=== PATIENT | female | born 1950 | race African-American/Black ===

== ENCOUNTER 2023-05-20 11:00 | Emergency (ER) | payer OTHER ==
--- OUTSIDE RECORDS SUMMARY | 2023-05-20 11:02 | XMS REPORT | Continuity of Care Document ---
:1950 Author Organization [facility] t Address [address] [place] [address] [place] [address] Care Team Providers Name Role Phone Liberty Jacinto Attending Clinician Unavailable Miller_S_AH Attending Clinician Unavailable Aishaayo_A_AH Attending Clinician Unavailable Miller_S_AH Admitting Clinician Unavailable Olamide-Mbayo_A_AH Admitting Clinician Unavailable Payers Payer Name Policy Type Policy Number Effective Date Expiration Date S our [facility] [place] - [id number] 2019 [employer] 00:00:00 (MEDICARE REPLACEMENT/ADVANT AGE - HMO) Problems Condition Condition Condition Status Onset Resolution Last Treating Co mments Source Name Details Category Date Date Treatment Clinician Date Senile Senile Problem Active [facility] purpura Purpura - Family 00:00: Practic 00 e Chronic Chronic Problem Active [facility] kidney Kidney 1-12 Family disease Disease 00:00: Practic stage 3 Stage 3 00 e Hyperparat Hyperparat Problem Active [facility] hyroidism hyroidism 12 Fami ly due to Due to 00:00: Practic renal Renal 00 e insufficie Insufficie ncy ncy Type 2 Type 2 Problem Active [facility] diabetes Diabetes 7-07 Family mellitus Mellitus 00:00: Practi c 00 e Body mass Body Mass Problem Active Anjana kerri index Index 3-04 Family 25-29 - 25-29 - 00:00: Practic overweight Overweight 00 e Anemia Anemia Problem Active [facility] 3-04 Family 00:00: Practic 00 e Benign Benign Problem Active [facility] hypertensi Hypertensi 3-04 Fa shabbir ve renal ve Renal 00:00: Practi c disease Disease 00 e Multiple Multiple Problem Active Wolf ge complicati Complicati 3-04 Frankie shea ons due to ons Due to 00:00: Pr actic type 2 Type 2 00 e diabetes Diabetes mellitus Mellitus Allergies, Adverse Reactions, Alerts This patient has no known allergies or adverse reactions. Social History Smoking Status Start Date Stop Date Source Never Smoker [facility] Medications Ordered Filled Start Stop Current Ordering Indication Dosage Frequency Signature Comments Components Source Medication Medication Date Date Medication? Clinician (SIG) Name Name allopurinol allopurinol No allopurino [facility] 100 mg 100 mg l 100 mg Family tablet TAKE tablet TAKE tablet Practic 1 TABLET BY 1 TABLET BY TAKE 1 e MOUTH ONCE MOUTH ONCE TABLET BY DAILY DAILY MOUTH ONCE DAILY amlodipine amlodipine No amlodipine [facility] 10 mg 10 mg 10 mg Family tablet TAKE tablet TAKE tablet Practic 1 TABLET BY 1 TABLET BY TAKE 1 e MOUTH ONCE MOUTH ONCE TABLET BY DAILY DAILY MOUTH ONCE DAILY Aspir-81 1 Aspir-81 1 No Aspir-81 1 [facility] tab daily tab daily tab daily Family Practic e flaxseed flaxseed No flaxseed Anjana kerri oil-omega oil-omega oil-omega Family 3,6,9-fatty 3,6,9-fatty 3,6,9-fatt Practic acids 1,300 acids 1,300 y acids e mg-670 mg-670 1,300 mg-155 mg mg-155 mg mg-670 capsule capsule mg-155 mg Take by Take by capsule oral route. oral route. Take by oral route. iron 1 tab iron 1 tab No iron 1 tab [facility] daily daily daily Family Practic e lisinopril lisinopril No lisinopril [facility] 20 20 20 Family mg-hydrochl mg-hydrochl mg-hydroch Practic orothiazide orothiazide lorothiazi e 25 mg 25 mg de 25 mg tablet TAKE tablet TAKE tablet 1 TABLET BY 1 TABLET BY TAKE 1 MOUTH ONCE MOUTH ONCE TABLET BY DAILY FOR DAILY FOR MOUTH ONCE 90 DAYS 90 DAYS DAILY FOR 90 DAYS metformin metformin No metformin [facility] ER 500 mg ER 500 mg ER 500 mg Family tablet,exte tablet,exte tablet,ext Practic nded nded ended e release 24 release 24 release 24 hr hr hr pioglitazon pioglitazon No pioglitazo [facility] e 15 mg e 15 mg ne 15 mg Famil y tablet Take tablet Take tablet Practic 1 tablet 1 tablet Take 1 e every day every day tablet by oral by oral every day route. route. by oral route. Immunizations Ordered Immunization Filled Immunization Date Status Commen ts Source Name Name influenza, influenza, 2020-07-25 Completed [facility] injectable, injectable, 00:00:00 Practice quadrivalent quadrivalent pneumococcal pneumococcal 2019-07-24 Completed [facility] shabbir polysaccharide PPV23 polysaccharide PPV23 00:00:00 Practice influenza, influenza, 2019-07-24 Completed [facility] injectable, injectable, 00:00:00 Practice quadrivalent quadrivalent Vital Signs Vital Name Observation Time Observation Value Comments Source BP Diastolic 2019-11-23 00:00:00 80 mm[Hg] [facility] Height 2019-11-23 00:00:00 57 [in_i] [facility] BMI (Body Mass 2019-11-23 00:00:00 27.3 kg/m2 [facility]) Practice BP Systolic 2019-11-23 00:00:00 130 mm[Hg] [facility] Body Weight 2019-11-23 00:00:00 126 [lb_av] [facility] Procedures Procedure Date / Time Performed Performing Clinician [facility] e mammogram, screening 2019-11-23 00:00:00 [facility] Hemorrhoidectomy [facility] Plan of Care Planned Activity Planned Date Details Comments Source Instructions [facility] Encounters Start End Encounter Admission Attending Care Care Encounter Source Date/Time Date/Time Type Type Clinicians Facility Department ID 2021-10-18 Outpatient HAIDER Jacinto [facility] [id number] Common 11:28:09 Liberty [id number] [facility] 2022-05-15 2022-05-15 Outpatient Miller_S_AH VFP VFP [id number] [facility] 00:00:00 00:00:00 [id number] Family Practic e 2022-05-15 2022-05-15 Outpatient Miller_S_AH VFP VFP [id number] [facility] 00:00:00 00:00:00 [id number] Family Practic e 2021-03-08 2021-03-08 Outpatient Miller_S_AH VFP VFP [id number] [facility] 11:14:00 11:14:00 [id number] Family Practic e 2021-02-02 2021-02-02 Outpatient Olamide-Mbayo VFP VFP [id number] [facility] 12:21:00 12:21:00 _A_AH [id number] Family Practic e 2020-11-30 2020-11-30 Outpatient Olamide-Mbayo VFP VFP [id number] [facility] 02:07:00 02:07:00 _A_AH [id number] Family Practic e 2020-11-28 2020-11-28 Clau VFP [place] - [id number] [facility] 00:00:00 00:00:00 Olamide-Mbay [facility] Rohan weaver, [employer]: Medical - Practi c [email or web address] [facility], [place] [address], [place] [address] , Ph. 2020-11-08 2020-11-08 Outpatient Olamide-Mbayo VFP VFP [id number] [facility] 03:31:00 03:31:00 _A_AH [id number] Family Practic e 2020-11-08 2020-11-08 Outpatient Olamide-Mbayo VFP VFP [id number] [facility] 03:31:00 03:31:00 _A_AH [id number] Family Practic e 2020-11-08 2020-11-08 Outpatient Olamide-Mbayo VFP VFP [id number] [facility] 03:31:00 03:31:00 _A_AH [id number] Family Practic e 2020-11-04 2020-11-04 Outpatient Olamide-Mbayo VFP VFP [id number] [facility] 05:27:00 05:27:00 _A_AH [id number] Family Practic e 2019-11-24 2019-11-24 Outpatient Olamide-Mbayo VFP VFP [id number] [facility] 02:56:00 02:56:00 _A_AH [id number] Family Practic e 2019-11-23 2019-11-23 Outpatient Olamide-Mbayo VFP VFP [id number] [facility] 03:19:00 03:19:00 _A_AH [id number] Family Practic e 2019-11-23 2019-11-23 Clau VFP [place] - [id number] [facility] 00:00:00 00:00:00 Olamide-Mbay [facility] becki weaver, [employer]: Medical - Practi kamini [email or web address] [facility], [place] [address], [place] [address] , Ph. Results This patient has no known results.
[2023-05-20 13:35] VITALS: TEMP 97.8
[2023-05-20 13:36] VITALS: BP 182/89; O2SAT 99
--- NOTE | 2023-05-21 13:15 | ER ---
Nurse's Notes [facility] Name: Gertrude Jordan Age: 72 yrs Sex: Female : 1950 Arrival Date: 05/20/2023 Time: 11:00 Bed 12 Private MD: Diagnosis: Foreign body in conjunctival sac, right eye;Foreign body in cornea, right eye Presentation: 05/20 11:19 Chief complaint: Patient states: "I woke up this morning and my right eye started mb9 hurting and now its swollen. I can barley keep it open". Coronavirus screen: Vaccine status: Patient reports receiving the 2nd dose of the covid vaccine. Ebola Screen: No symptoms or risks identified at this time. Initial Sepsis Screen: Does the patient meet any 2 criteria? No. Patient's initial sepsis screen is negative. Does the patient have a suspected source of infection? No. Patient's initial sepsis screen is negative. Risk Assessment: Do you want to hurt yourself or someone else? Patient reports no desire to harm self or others. Onset of symptoms was May 20, 2023. 11:19 Method Of Arrival: Ambulatory mb9 11:19 Acuity: LILIA 3 mb9 Triage Assessment: 11:22 General: Appears uncomfortable, Behavior is cooperative. EENT: Sclera/Cornea are mb9 reddened in outer aspect of conjuctiva of right eye and inner aspect of conjuctiva of right eye. Respiratory: Airway is patent Respiratory effort is even, unlabored, Respiratory pattern is regular, symmetrical. Derm: Skin is pink, warm \\T\\ dry. Musculoskeletal: Range of motion: intact in all extremities. Historical: - Allergies: 11:20 No Known Allergies; mb9 - Home Meds: 11:20 amlodipine oral [Active]; Metformin Oral [Active]; mb9 - PMHx: 11:20 Hypertensive disorder; Diabetes mellitus; mb9 - PSHx: 11:20 section; Total abdominal hysterectomy; mb9 - Immunization history:: Adult Immunizations up to date. - Social history:: Smoking status: Patient denies any tobacco usage or history of. Screenin:19 [facility] ED Fall Risk Assessment (Adult) History of falling in the last 3 months, me1 including since admission No falls in past 3 months (0 pts) Confusion or Disorientation No (0 pts) Intoxicated or Sedated No (0 pts) Impaired Gait No (0 pts) Mobility Assist Device Used No (0 pt) Altered Elimination No (0 pt) Score/Fall Risk Level 0 - 2 = Low Risk. Abuse screen: Denies threats or abuse. Nutritional screening: No deficits noted. Tuberculosis screening: No symptoms or risk factors identified. Assessment: 12:19 General: Appears uncomfortable, well groomed, well developed, well nourished, Behavior me1 is calm, cooperative, appropriate for age. Pain: Complains of pain in right eye Pain currently is 5 out of 10 on a pain scale. Quality of pain is described as sharp, Pain began 2 hours ago. Is continuous. Neuro: Level of Consciousness is awake, alert, obeys commands, Oriented to person, place, time, situation, Appropriate for age. Cardiovascular: Capillary refill < 3 seconds Patient's skin is warm and dry. Respiratory: Airway is patent Respiratory effort is even, unlabored, Respiratory pattern is regular, symmetrical. EENT: Sclera/Cornea are reddened in outer aspect of conjuctiva of right eye and inner aspect of conjuctiva of right eye Reports pain in right eye woke up this morning, R eye started hurting and now it is swollen. "I can barely keep it open.". Vital Signs: 11:19 BP 183 / 79; Pulse 62; Resp 16; Temp 97.8; Pulse Ox 100% ; Weight 58.97 kg; Height 4 mb9 ft. 9 in. ; Pain 8/10; 13:08 BP 182 / 89; Pulse 52; Resp 17; Pulse Ox 99% on R/A; me1 11:19 Body Mass Index 28.13 (58.97 kg, 144.78 cm) mb9 11:19 Pain Scale: Adult mb9 ED Course: 11:11 Patient arrived in ED. mg5 11:20 Triage completed. mb9 11:22 Arm band placed on. mb9 11:24 Artemio Alicea MD is Attending Physician. rn 11:41 Sierra Grullon is Attending Physician. ci 12:13 Nai Link, DIPTI is Primary Nurse. me1 12:19 Patient has correct armband on for positive identification. Bed in low position. Call [facility] in reach. Side rails up X 1. Provided Education on: POC. Verbalized understanding. . 12:19 No provider procedures requiring assistance completed. Patient did not have IV access me1 during this emergency room visit. Administered Medications: No medications were administered Medication: 12:19 VIS not applicable for this client. me1 Outcome: 12:48 Discharge ordered by . ci 13:14 Discharged to home with family. me1 13:14 Condition: stable 13:14 Discharge instructions given to patient, family, Instructed on discharge instructions, follow up and referral plans. Demonstrated understanding of instructions, follow-up care. 13:15 Patient left the ED. me1 Signatures: Artemio Alicea MD MD rn Breneman, Jhoana Anthony RN RN mb9 Nai Link RN RN me1 Cecilia Chavez 5 Sierra Grullon Corrections: (The following items were deleted from the chart) 11:22 11:19 BP 122 / 87; Pulse 62bpm; Resp 16bpm; Pulse Ox 100%; Temp 97.8F; 58.97 kg; Height mb9 4 ft. 9 in.; BMI: 28.1; Pain 8/10, Adult; mb9 11:22 11:19 Acuity: LILIA 4 mb9 mb9
--- NOTE | 2023-05-21 13:15 | EDPHYS ---
Physician Documentation [facility] Name: Gertrude Jordan Age: 72 yrs Sex: Female : 1950 Arrival Date: 05/20/2023 Time: 11:00 Bed 12 Private MD: ED Physician Sierra Grullon HPI: 05/20 12:20 This 72 yrs old Black Female presents to ER via Ambulatory with complaints of Eye ci Problem. 12:20 Patient endorses right eye pain, feels like she has an eyelash stuck in her eye. ci Recently got her eyelashes done 2 days ago. Patient looked in the mirror and could not see any foreign bodies, feels like r eye is swollen. No changes in vision, denies headache, trauma to eye. Historical: - Allergies: 11:20 No Known Allergies; mb9 - Home Meds: 11:20 amlodipine oral [Active]; Metformin Oral [Active]; mb9 - PMHx: 11:20 Hypertensive disorder; Diabetes mellitus; mb9 - PSHx: 11:20 section; Total abdominal hysterectomy; mb9 - Immunization history:: Adult Immunizations up to date. - Social history:: Smoking status: Patient denies any tobacco usage or history of. ROS: 12:43 Constitutional: Negative for fever, chills, and weight loss, Eyes: +ve pain, redness, ci and discharge ENT: Negative for injury, pain, and discharge, Neck: Negative for injury, pain, and swelling, Cardiovascular: Negative for chest pain, palpitations, and edema, Respiratory: Negative for shortness of breath, cough, wheezing, and pleuritic chest pain, Abdomen/GI: Negative for abdominal pain, nausea, vomiting, diarrhea, and constipation, Back: Negative for injury and pain, : Negative for injury, bleeding, discharge, and swelling, MS/Extremity: Negative for injury and deformity, Skin: Negative for injury, rash, and discoloration, Neuro: Negative for headache, weakness, numbness, tingling, and seizure, Psych: Negative for depression, anxiety, suicide ideation, homicidal ideation, and hallucinations, Allergy/Immunology: Negative for hives, rash, and allergies, Endocrine: Negative for neck swelling, polydipsia, polyuria, polyphagia, and marked weight changes, Hematologic/Lymphatic: Negative for swollen nodes, abnormal bleeding, and unusual bruising. Exam: 12:43 Visual Acuity: I have reviewed the nursing documentation. Visual acuity is within ci normal limits. 12:43 Constitutional: This is a well developed, well nourished patient who is awake, alert, and in no acute distress. Head/Face: Normocephalic, atraumatic. Eyes: Pupils equal round and reactive to light, extra-ocular motions intact. Lids and lashes normal. Conjunctiva and sclera are non-icteric and not injected. Cornea within normal limits. Periorbital areas with no swelling, redness, or edema. R eye with smal eyelash noted, eyelashe removed successfully Vital Signs: 11:19 BP 183 / 79; Pulse 62; Resp 16; Temp 97.8; Pulse Ox 100% ; Weight 58.97 kg; Height 4 mb9 ft. 9 in. ; Pain 8/10; 13:08 BP 182 / 89; Pulse 52; Resp 17; Pulse Ox 99% on R/A; me1 11:19 Body Mass Index 28.13 (58.97 kg, 144.78 cm) mb9 11:19 Pain Scale: Adult mb9 MDM: 11:24 Patient medically screened. rn 12:43 Differential diagnosis: Corneal abrasion of Foreign body in Acute iritis of right eye. ci 12:48 Patient medically screened. ci 13:12 ED course: Patient arrived to the ED nontoxic and in no apparent distress. She is ci hypertensive, hx of HTN, did not take norvasc, lisinopril-hctz. Eye lash removed from eye and symptoms completely resolved. Advised to take BP meds when she gets home. Administered Medications: No medications were administered Disposition Summary: 05/20/23 12:48 Discharge Ordered Location: Home ci Problem: new ci Symptoms: are resolved ci Condition: Stable ci Diagnosis - Foreign body in conjunctival sac, right eye ci - Foreign body in cornea, right eye ci Followup: ci - With: Private Physician - When: 1 - 2 days - Reason: Recheck today's complaints, Re-evaluation by your physician, Recheck hypertension Discharge Instructions: - Discharge Summary Sheet ci - Eye Foreign Body ci - Eye Foreign Body, Uqqi-ek-Spty ci Forms: - Medication Reconciliation Form ci - Thank You Letter ci - Antibiotic Education ci - Prescription Opioid Use ci - Patient Portal Instructions ci - Leadership Thank You Letter ci Signatures: Artemio Alicea MD MD rn Breneman, Jhoana Anthony RN RN mb9 Sierra Grullon ci
== END 2023-05-20 13:15 | disposition home or self-care (01) ==
LOC: ER 11:00
DX: T15.11XA Foreign body in conjunctival sac, right eye, initial encounter (principal); T15.01XA Foreign body in cornea, right eye, initial encounter; E11.9 Type 2 diabetes mellitus without complications; I10 Essential (primary) hypertension
CPT/HCPCS: 99282

== ENCOUNTER 2024-07-11 11:28 | Emergency (ER) | payer OTHER ==
--- OUTSIDE RECORDS SUMMARY | 2024-07-11 11:31 | XMS REPORT | Continuity of Care Document ---
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 [employer] Name Role Phone Liberty Jacinto Attending Clinician Unavailable Miller_S_AH Attending Clinician Unavailable Olamide-Michelleayo_A_AH Attending Clinician Unavailable Miller_S_AH Admitting Clinician Unavailable Olamide-Mbayo_A_AH Admitting Clinician Unavailable Payers Payer Name Policy Type Policy Number Effective Date Expirati on Date Source [employer] (MEDICARE REPLACEMENT/ADVANT AGE - HMO) [id number] 2019 00:00:00 Problems Condition Name Condition Details Condition Category Status Onset Date Resolution Date Last Treatment Date Treating Clinician Comments Source Senile purpura Senile Purpura Problem Active 10-04 00:00: 00 [facility] Chronic kidney disease stage 3 Chronic Kidney Disease Stage 3 Problem Active 10-04 00:00: 00 [facility] 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 Hyperparat hyroidism Due to Renal Insufficie ncy Problem Active 10-04 00:00: 00 [facility] Type 2 diabetes mellitus Type 2 Diabetes Mellitus Problem Active 03-29 00:00: 00 [facility] Body mass index 25-29 - overweight Body Mass Index 25-29 - Overweight Problem Active 11-24 00:00: 00 [facility] Anemia Anemia Problem Active 11-24 00:00: 00 [facility] Benign hypertensi ve renal disease Benign Hypertensi ve Renal Disease Problem Active 11-24 00:00: 00 [facility] Multiple complicati ons due to type 2 diabetes mellitus Multiple Complicati ons Due to Type 2 Diabetes Mellitus Problem Active 11-24 00:00: 00 [facility] Social History Smoking Status Start Date Stop Date Source Never Smoker [facility] Practice Medications Ordered Medication Name Filled Medication Name Start Date Stop Date Current Medication? Ordering Clinician Indication Dosage Frequency Signature (SIG) Comments Components Source allopurinol 100 mg tablet TAKE 1 TABLET BY MOUTH ONCE DAILY allopurinol 100 mg tablet TAKE 1 TABLET BY MOUTH ONCE DAILY No allopurino l 100 mg tablet TAKE 1 TABLET BY MOUTH ONCE DAILY [facility] amlodipine 10 mg tablet TAKE 1 TABLET BY MOUTH ONCE DAILY amlodipine 10 mg tablet TAKE 1 TABLET BY MOUTH ONCE DAILY No amlodipine 10 mg tablet TAKE 1 TABLET BY MOUTH ONCE DAILY [facility] Aspir-81 1 tab daily Aspir-81 1 tab daily No Aspir-81 1 tab daily [facility] Practic e flaxseed oil-omega 3,6,9-fatty acids 1,300 mg-670 mg-155 mg capsule Take by oral route. flaxseed oil-omega 3,6,9-fatty acids 1,300 mg-670 mg-155 mg capsule Take by oral route. No flaxseed oil-omega 3,6,9-fatt y acids 1,300 mg-670 mg-155 mg capsule Take by oral route. [facility] iron 1 tab daily iron 1 tab daily No iron 1 tab daily [facility] Practic e lisinopril 20 mg-hydrochl orothiazide 25 mg tablet TAKE 1 TABLET BY MOUTH ONCE DAILY FOR 90 DAYS lisinopril 20 mg-hydrochl orothiazide 25 mg tablet TAKE 1 TABLET BY MOUTH ONCE DAILY FOR 90 DAYS No lisinopril 20 mg-hydroch lorothiazi de 25 mg tablet TAKE 1 TABLET BY MOUTH ONCE DAILY FOR 90 DAYS [facility] metformin ER 500 mg tablet,exte nded release 24 hr metformin ER 500 mg tablet,exte nded release 24 hr No metformin ER 500 mg tablet,ext ended release 24 hr [facility] pioglitazon e 15 mg tablet Take 1 tablet every day by oral route. pioglitazon e 15 mg tablet Take 1 tablet every day by oral route. No pioglitazo ne 15 mg tablet Take 1 tablet every day by oral route. [facility] Vital Signs Vital Name Observation Time Observation Value Comments S ource BP Diastolic 2019-11-23 00:00:00 80 mm[Hg] Anjana manning [facility] Height 2019-11-23 00:00:00 57 [in_i] Wolf ge [facility] BMI (Body Mass Index) 2019-11-23 00:00:00 27.3 kg/m2 [facility] BP Systolic 2019-11-23 00:00:00 130 mm[Hg] Moshe nguyen [facility] Body Weight 2019-11-23 00:00:00 126 [lb_av] Anjana [facility] Procedures Procedure Date / Time Performed Performing Clinicia n Source mammogram, screening 2019-11-23 00:00:00 [facility] Hemorrhoidectomy [facility] becki [facility] Plan of Care Planned Activity Planned Date Details Comments Source Instructions [facility] Encounters Start Date/Time End Date/Time Encounter Type Admission Type Attending Clinicians Care Facility Care Department Encounter ID Source 2021-10-18 11:28:09 Outpatient Liberty Jacinto [facility] [id number] [facility] 2022-05-15 00:00:00 2022-05-15 00:00:00 Outpatient Miller_S_AH VFP VFP [id number] [facility] 2022-05-15 00:00:00 2022-05-15 00:00:00 Outpatient Miller_S_AH VFP VFP [id number] [facility] 2021-03-08 11:14:00 2021-03-08 11:14:00 Outpatient Miller_S_AH VFP VFP [id number] [facility] 2021-02-02 12:21:00 2021-02-02 12:21:00 Outpatient Olamide-Mbayo _A_AH VFP VFP [id number] [facility] 2020-11-30 02:07:00 2020-11-30 02:07:00 Outpatient Olamide-Mbayo _A_AH VFP VFP [id number] [facility] 2020-11-28 00:00:00 2020-11-28 00:00:00 Clau weaver, 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 [facility]FP [place] - [facility] - [email or web address] Direct [id number] [facility] 2020-11-08 03:31:00 2020-11-08 03:31:00 Outpatient Olamide-Mbayo _A_AH VFP VFP [id number] [facility] 2020-11-08 03:31:00 2020-11-08 03:31:00 Outpatient Olamide-Mbayo _A_AH VFP VFP [id number] [facility] 2020-11-08 03:31:00 2020-11-08 03:31:00 Outpatient Olamide-Mbayo _A_AH VFP VFP [id number] [facility] 2020-11-04 05:27:00 2020-11-04 05:27:00 Outpatient Olamide-Mbayo _A_AH VFP VFP [id number] [facility] 2019-11-24 02:56:00 2019-11-24 02:56:00 Outpatient Olamide-Mbayo _A_AH VFP VFP [id number] [facility] 2019-11-23 03:19:00 2019-11-23 03:19:00 Outpatient Olamide-Mbayo _A_AH VFP VFP [id number] [facility] 2019-11-23 00:00:00 2019-11-23 00:00:00 Clau weaver, RACKET STRINGER: [address], [address], [place] [address] , Ph. VFP [place] - [facility] - [email or web address] [facility] [id number] [facility]
[2024-07-11 12:34] LABS: SARS-CoV-2 Antigen CONTROL BLUE LINE VIS/BG OK; SARS-CoV-2 Antigen Rapid Res Negative (Negative)
--- NOTE | 2024-07-11 13:30 | RAD REPORT ---
Procedure: Chest Pa And Lat (2 Views) HISTORY: cough COMPARISON: none FINDINGS: The lungs appear clear of acute infiltrate. No significant pleural effusion noted. The heart is borderline enlarged. IMPRESSION: No acute abnormality is displayed.
--- NOTE | 2024-07-11 13:40 | EDPHYS ---
Physician Documentation [facility] Name: Gertrude Jordan Age: 74 yrs Sex: Female : 1950 Arrival Date: 07/11/2024 Time: 11:28 Bed 15 Private MD: PALMER Physician Stoney Houston HPI: 07/11 12:10 This 74 yrs old Black Female presents to ER via Ambulatory with complaints of Flu sb4 Symptoms. 12:10 Onset: The symptoms/episode began/occurred 2 day(s) ago. Associated signs and symptoms: sb4 Pertinent positives: cough. Modifying factors: The patient symptoms are alleviated by nothing, the patient symptoms are aggravated by nothing. The patient has not experienced similar symptoms in the past. The patient has not recently seen a physician. Historical: - Allergies: 11:47 No Known Allergies; iw - PMHx: 11:47 diabetes mellitus; Hypertensive disorder; iw - PSHx: 11:47 Total abdominal hysterectomy; section; iw - Immunization history:: Adult Immunizations up to date. - Infectious Disease History:: Denies. - Social history:: Smoking status: Patient denies any tobacco usage or history of. ROS: 12:10 Constitutional: Negative for fever, chills, and weight loss, sb4 12:10 Respiratory: Positive for cough, 12:10 All other systems are negative, Exam: 12:10 Constitutional: This is a well developed, well nourished patient who is awake, alert, sb4 and in no acute distress. Head/Face: Normocephalic, atraumatic. Eyes: Extra-ocular motions intact. Periorbital areas with no swelling, redness, or edema. ENT: Mucous membranes moist. Cardiovascular: Regular rate and rhythm with a normal S1 and S2. Respiratory: No increased work of breathing, no retractions or nasal flaring. Skin: Warm, dry with normal turgor. Normal color with no rashes, no lesions, and no evidence of cellulitis. 12:10 Respiratory: Breath sounds: are clear throughout, Vital Signs: 11:48 BP 178 / 74; Pulse 65; Resp 16; Temp 98.6; Pulse Ox 96% ; Weight 60.78 kg; Height 4 ft. iw 9 in. ; Pain 10/10; 13:45 BP 145 / 78; Pulse 60; Resp 16; Pulse Ox 100% on R/A; mb9 11:48 Body Mass Index 29.00 (60.78 kg, 144.78 cm) iw 11:48 Pain Scale: Adult iw MDM: 11:31 Medical Screening Exam initiated sb4 12:12 Differential diagnosis: viral Infection, bacterial infection, URI, bronchitis, sb4 pneumonia covid, flu. 13:39 Data reviewed: vital signs, nurses notes, lab test result(s), radiologic studies, and sb4 as a result, I will discharge patient. Counseling: I had a detailed discussion with the patient and/or guardian regarding the historical points, exam findings, and any diagnostic results supporting the discharge/admit diagnosis, lab results, radiology results, to return to the emergency department if symptoms worsen or persist or if there are any questions or concerns that arise at home. 07/11 12:06 Order name: SARS RAPID; Complete Time: 12:37 sb4 07/11 12:06 Order name: Flu; Complete Time: 12:47 sb4 07/11 12:06 Order name: Chest Pa And Lat (2 Views) XRAY; Complete Time: 13:36 sb4 Administered Medications: No medications were administered Disposition Summary: 07/11/24 13:39 Discharge Ordered Notes: Location: Home sb4 Problem: new sb4 Symptoms: are unchanged sb4 Condition: Stable sb4 Diagnosis - Acute bronchitis, unspecified sb4 Followup: sb4 - With: Emergency Department - When: As needed - Reason: Trouble breathing, Worsening of condition Discharge Instructions: - Discharge Summary Sheet sb4 - Acute Bronchitis, Adult sb4 Forms: - Patient Portal Instructions sb4 - Leadership Thank You Letter sb4 Prescriptions: - albuterol sulfate 90 mcg/actuation Inhalation Aerosol Powder, Breath Activated - administer 1 inhalation INHALATION route every 6 hours as needed for shortness sb4 of breath or wheezing; 1 Applicator; Refills: 0, Product Selection Permitted - Tessalon Perles 100 mg Oral Capsule - take 1 capsule ORAL route every 8 hours As needed; 15 capsule; Refills: 0, sb4 Product Selection Permitted - Prednisone 20 mg Oral Tablet - take 1 tablet ORAL route every 12 hours for 5 days; 10 tablet; Refills: 0, sb4 Product Selection Permitted Signatures: Dispatcher [employer] Mora Marti RN RN Kesha Lentz PA-C PA-C sb4
--- NOTE | 2024-07-11 13:40 | ER ---
Nurse's Notes [facility] Name: Gertrude Jordan Age: 74 yrs Sex: Female : 1950 Arrival Date: 07/11/2024 Time: 11:28 Bed 15 Private MD: Diagnosis: Acute bronchitis, unspecified Presentation: 07/11 11:46 Chief complaint: Patient states: bad cough X 2 days, no fever. Coronavirus screen: iw Client presents with at least one sign or symptom that may indicate coronavirus-19. Ebola Screen: No symptoms or risks identified at this time. Initial Sepsis Screen: Does the patient meet any 2 criteria? No. Patient's initial sepsis screen is negative. Does the patient have a suspected source of infection? No. Patient's initial sepsis screen is negative. Risk Assessment: Do you want to hurt yourself or someone else? Patient reports no desire to harm self or others. 11:46 Method Of Arrival: Ambulatory iw 11:46 Acuity: LILIA 4 iw 12:09 Onset of symptoms was July 11, 2024. mb9 Historical: - Allergies: 11:47 No Known Allergies; iw - PMHx: 11:47 diabetes mellitus; Hypertensive disorder; iw - PSHx: 11:47 Total abdominal hysterectomy; section; iw - Immunization history:: Adult Immunizations up to date. - Infectious Disease History:: Denies. - Social history:: Smoking status: Patient denies any tobacco usage or history of. Screenin:08 [facility] ED Fall Risk Assessment (Adult) History of falling in the last 3 months, mb9 including since admission No falls in past 3 months (0 pts) Confusion or Disorientation No (0 pts) Intoxicated or Sedated No (0 pts) Impaired Gait No (0 pts) Mobility Assist Device Used No (0 pt) Altered Elimination No (0 pt) Score/Fall Risk Level 0 - 2 = Low Risk Oriented to surroundings, Maintained a safe environment, Educated pt \T\ family on fall prevention, incl call for assistance when getting out of bed. Abuse screen: Denies threats or abuse. Nutritional screening: No deficits noted. Tuberculosis screening: No symptoms or risk factors identified. Assessment: 12:08 General: Appears in no apparent distress. Behavior is calm, cooperative. Pain: Denies mb9 pain. Neuro: Level of Consciousness is awake, alert, obeys commands, Oriented to person, place, time, situation, Appropriate for age. Cardiovascular: Patient's skin is warm and dry. Respiratory: Reports cough that is non-productive, Airway is patent Respiratory effort is even, unlabored, Respiratory pattern is regular, symmetrical, Breath sounds are clear bilaterally. GI: No signs and/or symptoms were reported involving the gastrointestinal system. : No signs and/or symptoms were reported regarding the genitourinary system. EENT: No signs and/or symptoms were reported regarding the EENT system. Derm: Skin is pink, warm \T\ dry. Musculoskeletal: Range of motion: intact in all extremities. 13:09 Reassessment: No changes from previously documented assessment. Patient and/or family mb9 updated on plan of care and expected duration. Pain level reassessed. Patient is alert, oriented x 3, equal unlabored respirations, skin warm/dry/pink. Vital Signs: 11:48 BP 178 / 74; Pulse 65; Resp 16; Temp 98.6; Pulse Ox 96% ; Weight 60.78 kg; Height 4 ft. iw 9 in. ; Pain 10/10; 13:45 BP 145 / 78; Pulse 60; Resp 16; Pulse Ox 100% on R/A; mb9 11:48 Body Mass Index 29.00 (60.78 kg, 144.78 cm) iw 11:48 Pain Scale: Adult iw ED Course: 11:30 Patient arrived in ED. im 11:31 Kesha Horta PA-C is PHCP. sb4 11:31 Stoney Houston MD is Attending Physician. sb4 11:47 Triage completed. iw 11:48 Arm band placed on. iw 11:50 Jhoana Jacobo, DIPTI is Primary Nurse. mb9 12:09 Bed in low position. Call light in reach. Side rails up X 1. Provided Education on: mb9 press call light if needing anything. Client placed on continuous cardiac and pulse oximetry monitoring. NIBP monitoring applied. 12:09 No provider procedures requiring assistance completed. mb9 12:14 Flu Sent. mb9 12:14 SARS RAPID Sent. mb9 13:15 Chest Pa And Lat (2 Views) XRAY In Process Unspecified. EDMS 13:45 Patient did not have IV access during this emergency room visit. mb9 Administered Medications: No medications were administered Medication: 12:09 VIS not applicable for this client. mb9 Outcome: 13:39 Discharge ordered by MD. johnson 13:45 Discharged to home ambulatory, mb9 13:45 Condition: stable 13:45 Discharge instructions given to patient, Instructed on discharge instructions, follow up and referral plans. Demonstrated understanding of instructions, follow-up care, medications, Prescriptions given X 3, 13:46 Patient left the ED. mb9 Signatures: Dispatcher [employer] EDMora Blackwell RN RN iw Brown, Sophia PA-C PA-C Jhoana Shi RN RN mb9 Marian Dupree
[2024-07-11 16:42] VITALS: TEMP 98.6
[2024-07-11 16:43] VITALS: BP 145/78; O2SAT 100
== END 2024-07-11 13:46 | disposition home or self-care (01) ==
LOC: ER 11:28
DX: J20.9 Acute bronchitis, unspecified (principal); E11.9 Type 2 diabetes mellitus without complications; I10 Essential (primary) hypertension; Z11.52 Encounter for screening for COVID-19
CPT/HCPCS: 36415; 71046; 87804; 87811; 99283